=== PATIENT | male | born 1955 | race Caucasian/White ===

== ENCOUNTER 2017-04-25 19:14 | Emergency (ER) | payer OTHER ==
[2017-04-25 20:15] VITALS: PULSE 67; RESP 18
[2017-04-25] MEDS ORDERED: CEPHALEXIN 500MG STARTER PACK 4 CAP BTL PO STA (20:34)
--- NOTE | 2017-04-25 20:46 | ED ---
General Adult HPI - General Chief complaint: Extremity Problem,Nontraumatic Stated complaint: Dr Sent/Foot swelling Time Seen by Provider: 04/25/17 20:26 Source: patient, RN notes reviewed Mode of arrival: wheelchair Limitations: no limitations - History of Present Illness Initial comments: Patient is a 62-year-old male who presented to ED with complaint of right foot swelling and redness. He has a history of chronic diabetic neuropathy. He presented to his neurologist and pain management doctor today who noticed the redness and swelling of his foot and advised him to seek medical attention at the ED. Patient states he has limited sensation in his feet but that his right foot painful at this time. Patient denies any trauma to right foot. Denies fever, chills, chest pain, shortness of breath, abdominal pain, nausea, vomiting, dysuria, hematuria, numbess, tingling, headache or vision changes. - Related Data Home Medications Medication Instructions Recorded Confirmed Albuterol Inhaler [Ventolin Hfa 2 puff INHALATION RT-Q6H PRN 04/25/17 04/25/17 Inhaler] Atorvastatin [Lipitor] 20 mg PO HS 04/25/17 04/25/17 DULoxetine HCL [Cymbalta] 60 mg PO DAILY 04/25/17 04/25/17 Ferrous Sulfate [Feosol] 325 mg PO DAILY 04/25/17 04/25/17 Fluticasone/Vilanterol [Breo 1 puff INHALATION RT-DAILY 04/25/17 04/25/17 Ellipta 200-25 Mcg INH] Gabapentin 800 mg PO TID 04/25/17 04/25/17 Gabapentin [Neurontin] 400 mg PO TID 04/25/17 04/25/17 HYDROcodone/APAP 10-325MG [[place] 2 tab PO QAM 04/25/17 04/25/17 10-325] Insulin Aspart [NovoLOG Flexpen] 5 units SQ AC-BRKFST 04/25/17 04/25/17 Insulin Aspart [NovoLOG Flexpen] 6 units SQ AC-LUNCH 04/25/17 04/25/17 Insulin Aspart [NovoLOG Flexpen] 8 units SQ AC-SUPPER 04/25/17 04/25/17 Insulin Aspart [NovoLOG Flexpen] See Protocol SQ AC-TID PRN 04/25/17 04/25/17 Insulin Glargine,Hum.rec.anlog 22 unit SQ HS 04/25/17 04/25/17 [Lantus Solostar] Lacosamide [Vimpat] 50 mg PO BID 04/25/17 04/25/17 Lisinopril [Zestril] 20 mg PO DAILY 04/25/17 04/25/17 Naloxegol Oxalate [Movantik] 25 mg PO DAILY 04/25/17 04/25/17 Pregabalin [Lyrica] 300 mg PO BID 04/25/17 04/25/17 Sucralfate [Carafate] 1 gm PO QID 04/25/17 04/25/17 amLODIPine [Norvasc] 5 mg PO DAILY 04/25/17 04/25/17 fentaNYL [Duragesic 37.5 MCG/HR] 1 patch TRANSDERM Q72H 04/25/17 04/25/17 Previous Rx's Medication Instructions Recorded Cephalexin [Keflex] 500 mg PO Q12HR #20 cap 04/25/17 Allergies Allergy/AdvReac Type Severity Reaction Status Date / Time No Known Allergies Allergy Verified 04/25/17 20:20 Review of Systems ROS Statement: Those systems with pertinent positive or pertinent negative responses have been documented in the HPI. ROS Other: All systems not noted in ROS Statement are negative. Past Medical History Past Medical History: Diabetes Mellitus, Hyperlipidemia, Hypertension History of Any Multi-Drug Resistant Organisms: None Reported Past Surgical History: Hernia Repair Past Psychological History: No Psychological Hx Reported Smoking Status: Current every day smoker Past Alcohol Use History: None Reported Past Drug Use History: None Reported General Exam - General Exam Comments Initial Comments: General: Alert, oriented and cooperative; in no apparent distress. Head: Normocephalic and atraumatic. Eyes: PERRLA. Extraocular movements intact. Neck: Normal ROM. No JVD. Respiratory: Lungs clear to auscultation bilaterally. No wheezes, rales or rhonchi. No dyspnea noted. Cardiovascular: Regular rate and rhythm. Normal S1 and S2. No murmurs, rubs or gallops. MSK/Extremities: Dorsal surface of right foot warm, tender, erythematous and mildly swollen. No evidence of trauma. Pulses 2+, equal and palpable bilaterally. Neurological: Alert and oriented x3. CN II-XII grossly intact. Psychiatric: Normal mood and affect. No overt signs of depression or anxiety noted. Limitations: no limitations Course Vital Signs 04/25/17 04/25/17 19:32 20:09 Temperature 99 F 98.0 F Pulse Rate 78 67 Respiratory 20 18 Rate Blood Pressure 152/71 149/71 O2 Sat by Pulse 96 95 Oximetry Medical Decision Making - Medical Decision Making Patient is a 62-year-old male who presents with right foot redness, swelling and tenderness. Vital signs are stable. No evidence of DVT. Redness and swelling is localized to right foot and there is negative Homans sign. Patient will be discharged home with prescription of Keflex. Disposition Clinical Impression: Cellulitis of right foot Disposition: HOME SELF-CARE Condition: Good Instructions: Cellulitis (ED) Additional Instructions: Return to ED if redness and swelling increase or begins to move up lower extremity. Prescriptions: Cephalexin [Keflex] 500 mg PO Q12HR #20 cap Referrals: Gus Stoner MD [Primary Care Provider] - 1-2 days Time of Disposition: 20:56
[2017-04-25 20:56] VITALS: BP 150/70; TEMP 97.9
== END 2017-04-25 21:11 | disposition home or self-care (01) ==
LOC: EC 19:14
DX: L03.115 Cellulitis of right lower limb (principal); E11.9 Type 2 diabetes mellitus without complications; E78.5 Hyperlipidemia, unspecified; I10 Essential (primary) hypertension; F17.200 Nicotine dependence, unspecified, uncomplicated; Z79.4 Long term (current) use of insulin; Z79.51 Long term (current) use of inhaled steroids; Z79.899 Other long term (current) drug therapy
CPT/HCPCS: 99283